=== PATIENT | female | born 1985 ===

== ENCOUNTER 2018-08-03 16:24 | Emergency (ER) | payer MEDICAID ==
[2018-08-03 16:45] VITALS: RESP 20
--- NOTE | 2018-08-03 17:05 | C.PDOC ---
History Of Present Illness 32 year old female presents to the emergency department with complaints of left lower abdominal pain, intermittent for the last 6 days. Patient describes her pain as crampy, ranging from 2/10 to 6/10 in severity, associated with diarrhea. Patient states that the pain is dull and non-radiating. Patient reports that she was seen by her Doctor today and had a positive urine test, after which she was sent to the ER for further evaluation. Patient denies fever, chills, nausea, vomiting, chest pain, shortness of breath, dysuria, vaginal spotting. Patient is with a 10 year old child. Patient states that she has not been able to get for the past 10 years despite having unprotected sex. Time Seen by Provider: 08/03/18 16:59 Chief Complaint (Nursing): Abdominal Pain History Per: Patient History/Exam Limitations: no limitations Onset/Duration Of Symptoms: Days (6) Current Symptoms Are (Timing): Still Present Pain Scale Rating Of: 2 Location Of Pain/Discomfort: LLQ Quality Of Discomfort: Dull, Cramping, "Pain" Associated Symptoms: Diarrhea. denies: Fever, Chills, Nausea, Vomiting, Back Pain, Chest Pain, Constipation, Urinary Symptoms : 2 Para: 1 Past Medical History Reviewed: Historical Data, Nursing Documentation, Vital Signs Vital Signs: Last Vital Signs Temp 98.4 F 08/03/18 16:40 Pulse 87 08/03/18 16:40 Resp 20 08/03/18 16:40 BP 145/102 H 08/03/18 16:40 Pulse Ox 99 08/03/18 16:40 Primary Care Provider: Jt Varela - Medical History PMH: No Chronic Diseases Surgical History: No Surg Hx Family History: States: No Known Family Hx - Social History Hx Tobacco Use: Yes Hx Alcohol Use: Yes Hx Substance Use: No - Immunization History Hx Tetanus Toxoid Vaccination: No Hx Influenza Vaccination: No Hx Pneumococcal Vaccination: No Review Of Systems Except As Marked, All Systems Reviewed And Found Negative. Constitutional: Negative for: Fever, Chills Cardiovascular: Negative for: Chest Pain Respiratory: Negative for: Cough, Shortness of Breath Gastrointestinal: Positive for: Abdominal Pain, Diarrhea. Negative for: Nausea, Vomiting, Constipation Genitourinary: Negative for: Dysuria Neurological: Negative for: Weakness, Numbness Physical Exam - Physical Exam Appears: Non-toxic, No Acute Distress, Other (afebrile) Skin: Normal Color, Warm, Dry Head: Atraumatic, Normacephalic Eye(s): bilateral: Normal Inspection Neck: Normal, Supple Chest: Symmetrical, No Tenderness Cardiovascular: Rhythm Regular, No Murmur Respiratory: Normal Breath Sounds, No Rales, No Rhonchi, No Wheezing Gastrointestinal/Abdominal: Soft, Tenderness (mild LLQ tenderness), No Guarding, No Rebound, Other (obese) Back: No CVA Tenderness Extremity: Normal ROM Neurological/Psych: Oriented x3, Normal Speech, Normal Cognition ED Course And Treatment - Laboratory Results Result Diagrams: 08/03/18 17:34 08/03/18 17:34 O2 Sat by Pulse Oximetry: 99 (RA) Pulse Ox Interpretation: Normal Medical Decision Making Medical Decision Making: Plan: Blood Bank Type and Screen Chemistry CBC NaCl IV Fluids Urine Culture HCG Qualitative Urine Urinalysis US Transvaginal DDx: Ectopic vs. early vs. enteritis vs. viral syndrome Disposition - Disposition Disposition Time: 19:06 Condition: STABLE Forms: [employer] [facility] (Sami) - Clinical Impression Clinical Impression: Abdominal pain, - Scribe Statement The provider has reviewed the documentation as recorded by the Scribe (Samir Medrano) Provider Attestation: All medical record entries made by the Scribe were at my direction and pers onally dictated by me. I have reviewed the chart and agree that the record accurately reflects my personal performance of the history, physical exam, medical decision making, and the department course for this patient. I have also personally directed, reviewed, and agree with the discharge instructions and disposition. Physician Patient Turnover Patient Signed Over To: Mandie Vu Handoff Comments: LLQ pain, early prergnancy, pending US and final dispo
[2018-08-03] MEDS ORDERED: Sodium Chloride 0.9% 1,000 ML IV ONE (17:14)
[2018-08-03 17:37] LABS: HCG,QUALITATIVE URINE POSITIVE (NEGATIVE); URINE BACTERIA RARE (<OCC); URINE BILIRUBIN NEGATIVE (NEGATIVE); URINE BLOOD 2+ (NEGATIVE); URINE CLARITY Clear (Clear); URINE COLOR Straw (YELLOW); URINE GLUCOSE (UA) NORMAL (Normal); URINE LEUKOCYTE ESTERASE NEG Leu/uL (Negative); URINE PROTEIN NEGATIVE (NEGATIVE); URINE UROBILINOGEN NORMAL mg/dL (0.2-1.0)
[2018-08-03 17:38] LABS: BASO % 0.5 % (0.0-2.0); EOS % 0.5 % (0.0-4.0); HEMOGLOBIN 13.9 g/dL (11.0-16.0); LYMPH # 2.1 K/uL (1.0-4.3); LYMPH % 24.3 % (20.0-40.0); MEAN CORPUSCULAR HGB CONC 35.1 g/dL (33.0-37.0); MEAN PLATELET VOLUME 9.4 fL (7.2-11.7); MONO # 0.4 K/uL (0.0-0.8); MONO % 4.9 % (0.0-10.0); NEUT % 69.8 % (50.0-75.0); NRBC % 0.1 % (0.0-2.0); RBC 4.33 Mil/uL (3.80-5.20); RED CELL DISTRIBUTION WIDTH 12.8 % (11.5-14.5); WHITE BLOOD COUNT 8.6 K/uL (4.8-10.8)
[2018-08-03 17:40] LABS: MEAN CELL VOLUME 91.2 fL (81.0-99.0)
[2018-08-03 17:57] LABS: ALB/GLOB RATIO 1.5 (1.0-2.1); ALBUMIN 4.9 g/dL (3.5-5.0); ALT/SGPT 27 U/L (9-52); AST/SGOT 29 U/L (14-36); BLOOD UREA NITROGEN 7 mg/dL (7-17); CALCIUM 9.3 mg/dl (8.6-10.4); GFR NON-AFRICAN AMERICAN > 60
[2018-08-03 20:57] VITALS: BP 125/85; PULSE 80; TEMP 98.7; O2SAT 100
--- NOTE | 2018-08-04 10:36 | US ---
Date of service: 08/03/2018 HISTORY: , LLQ pain and spotting COMPARISON: None available. TECHNIQUE: Real-time transabdominal pelvic ultrasound was performed. In addition a transvaginal pelvic ultrasound was necessary to better depict pelvic anatomy. FINDINGS: UTERUS: Measures 11.6 x 4.9 x 6.1 cm. Anteverted. ENDOMETRIUM: Measures 1.2 cm in diameter. CERVIX: No cervical abnormality identified. RIGHT OVARY: Measures 3.1 x 1.8 x 2.8 cm. Blood flow is demonstrated. Indeterminate right adnexal heterogeneous mass measures 3.4 x 2.1 x 3.6 cm with associated vascularity. LEFT OVARY: Measures 4.0 x 3.0 x 3.9 cm. Blood flow is demonstrated. FREE FLUID: Small pelvic fluid extending to the right adnexa. OTHER FINDINGS: None. IMPRESSION: No evidence of intrauterine gestational sac. If indeed the patient is based on serum beta HCG values, the sonographic findings represent either: Very early IUP; embryonic demise; ectopic gestation. Follow-up with serial quantitative serum beta HCG measurements and post OBGYN follow-up as clinically indicated, since ectopic gestation cannot be excluded based only on sonographic findings. Heterogeneous vascular region at the right adnexa of unclear etiology; ectopic must be considered in the proper clinical setting. Correlate clinically including quantitative beta HCG and [employer] TECHNICIAN consultation with short-term follow-up as indicated. Small pelvic fluid extending to the right adnexa. Preliminary impression was provided by [facility]
== END 2018-08-03 20:57 | disposition home or self-care (01) ==
LOC: C.ER 16:24
DX: O26.899 Other specified pregnancy related conditions, unspecified trimester (principal); Z3A.00 Weeks of gestation of pregnancy not specified
CPT/HCPCS: 76830; 76856; 80053; 81001; 81025; 84702; 84703; 85025; 86850; 86900; 87086; 99284; J7030

== ENCOUNTER 2018-08-05 18:05 | Emergency (ER) | payer MEDICAID ==
--- NOTE | 2018-08-05 19:22 | C.PDOC ---
History Of Present Illness 32 year old female, , presents to the ED for evaluation of abdominal pain and vaginal bleeding. Patient states his LMP 06/11, was seen in the ED 2 days ago. Patient's US at the time showed questionable ectopic and returns as instructed. Patient denies fever, chills, nausea, vomit, diarrhea, rash, dysuria, hematuria, back pain. Time Seen by Provider: 08/05/18 19:08 Chief Complaint (Nursing): Abdominal Pain History Per: Patient History/Exam Limitations: no limitations Onset/Duration Of Symptoms: Days Current Symptoms Are (Timing): Still Present Location Of Pain/Discomfort: Suprapubic Radiation Of Pain To:: None Quality Of Discomfort: "Pain" Associated Symptoms: denies: Nausea, Vomiting, Diarrhea, Urinary Symptoms Recent travel outside of the [place]: No Additional History Per: Patient Abnormal Vaginal Bleeding: Yes Last Menstral Period: 06/11/18 : 2 Para: 1 Past Medical History Reviewed: Historical Data, Nursing Documentation, Vital Signs Vital Signs: Last Vital Signs Temp 97.6 F 08/05/18 18:08 Pulse 89 08/05/18 18:08 Resp 17 08/05/18 18:08 BP 128/82 08/05/18 18:08 Pulse Ox 97 08/05/18 18:08 Primary Care Provider: Non [facility] Provider, - Medical History PMH: No Chronic Diseases Surgical History: No Surg Hx Family History: States: Unknown Family Hx - Social History Hx Tobacco Use: Yes Hx Alcohol Use: Yes Hx Substance Use: No - Immunization History Hx Tetanus Toxoid Vaccination: No Hx Influenza Vaccination: No Hx Pneumococcal Vaccination: No Review Of Systems Constitutional: Negative for: Fever, Chills Cardiovascular: Negative for: Chest Pain Respiratory: Negative for: Shortness of Breath Gastrointestinal: Positive for: Abdominal Pain. Negative for: Nausea, Vomiting Genitourinary: Positive for: Vaginal Bleeding. Negative for: Dysuria, Hematuria Musculoskeletal: Negative for: Back Pain Skin: Negative for: Rash Neurological: Negative for: Weakness, Numbness, Headache, Dizziness Physical Exam - Physical Exam Appears: Non-toxic, No Acute Distress Skin: Normal Color, Warm, Dry Head: Atraumatic, Normacephalic Eye(s): bilateral: Normal Inspection Oral Mucosa: Moist Neck: Normal ROM, Supple Chest: Symmetrical Cardiovascular: Rhythm Regular Respiratory: Normal Breath Sounds, No Rales, No Rhonchi, No Wheezing Gastrointestinal/Abdominal: Soft, Tenderness (minima suprapubic), No Guarding, No Rebound Back: No CVA Tenderness Extremity: Normal ROM, No Tenderness, No Swelling Neurological/Psych: Oriented x3, Normal Speech, Normal Cognition Gait: Steady ED Course And Treatment - Laboratory Results Result Diagrams: 08/05/18 19:53 08/05/18 19:55 O2 Sat by Pulse Oximetry: 97 (ON RA) Pulse Ox Interpretation: Normal - CT Scan/US pelvic US Other Rad Studies (CT/US): Read By Radiologist, Radiology Report Reviewed CT/US Interpretation: EXAM: US Pelvis, Complete Transvaginal and Transabdominal. COMPARISON: Comparison is made to recent prior examination dated 08/03/2018. CLINICAL HISTORY: Abd pain . Beta hCG measurement on 08/05/2018 is 99.3 units and on 08/03/2018 measured 297.6 units. TECHNIQUE: Transvaginal and transabdominal pelvic ultrasound (complete) with image documentation. FINDINGS: ENDOMETRIUM: Again, there is no identification of an IUP. Thickening of the endometrium noted measuring 1.8 cm in AP dimension. UTERUS/CERVIX: The uterus appears slightly elongated measuring 10.8 x 4.7 x 5.9 cm in longitudinal, AP and transverse dimensions respectively; but otherwise within normal limits. No uterine fibroid or other mass evident. RIGHT OVARY: Normal Doppler flow. No abnormal mass. Previously described right adnexal finding not identified on the present study. LEFT OVARY: Normal Doppler flow. No abnormal mass. FREE FLUID: Minimal free fluid seen in the posterior cul-de-sac. IMPRESSION: 1. No identification of IUP. 2. Thickened endometrium measuring 1.8 cm in AP dimension. 3. Both ovaries now appear normal in size and position. . Electronically signed on August 05, 2018 9:29:33 PM EDT by: Lm Riley M.D., M.B.A., Certified By [employer]. Fellowship Trained MRI and CT Specialist. Medical Decision Making Medical Decision Makin day ago beta 200, ?right sided hetrogenous density ?ectopic Plan: * labs * UA * pelvic US 21:37 - beta decreasing, no iup. discussed case with Dr. Kraft OB recreation professor who recommends patient to come back in 2 days for recheck betta. abd soft no ttp. suepct miscarriage vs ectopic. Disposition - Disposition Disposition: HOME/ ROUTINE Disposition Time: 21:00 Condition: STABLE Additional Instructions: return in 2 days for recheck of blood test Instructions: Miscarriage, Dealing With Miscarriage Forms: [employer] [facility] (Latvian) - Clinical Impression Clinical Impression: Vaginal bleeding - Scribe Statement The provider has reviewed the documentation as recorded by the Scribe Isidoro Coffey All medical record entries made by the Scribe were at my direction and person ally dictated by me. I have reviewed the chart and agree that the record accurately reflects my personal performance of the history, physical exam, medical decision making, and the department course for this patient. I have also personally directed, reviewed, and agree with the discharge instructions and disposition.
[2018-08-05 20:01] LABS: BASO % 0.4 % (0.0-2.0); EOS # 0.1 K/uL (0.0-0.7); EOS % 1.3 % (0.0-4.0); HEMOGLOBIN 12.8 g/dL (11.0-16.0); LYMPH # 2.1 K/uL (1.0-4.3); LYMPH % 29.2 % (20.0-40.0); MEAN CELL VOLUME 92.9 fL (81.0-99.0); MEAN CORPUSCULAR HEMOGLOBIN 31.6 pg (27.0-31.0); MEAN PLATELET VOLUME 9.3 fL (7.2-11.7); MONO # 0.5 K/uL (0.0-0.8); MONO % 6.9 % (0.0-10.0); NEUT # 4.6 K/uL (1.8-7.0); NEUT % 62.2 % (50.0-75.0); RBC 4.04 Mil/uL (3.80-5.20); WHITE BLOOD COUNT 7.3 K/uL (4.8-10.8)
[2018-08-05 20:09] LABS: ALB/GLOB RATIO 1.3 (1.0-2.1); ALT/SGPT 35 U/L (9-52); AST/SGOT 24 U/L (14-36); BLOOD UREA NITROGEN 9 mg/dL (7-17); GFR NON-AFRICAN AMERICAN > 60
[2018-08-05 20:09] LABS: INR 0.9; PARTIAL THROMBOPLASTIN TIME 32.1 SECONDS (21-34); PROTHROMBIN TIME 10.3 SECONDS (9.7-12.2)
[2018-08-05 21:29] LABS: HCG,QUALITATIVE URINE POSITIVE (NEGATIVE)
[2018-08-05 21:33] LABS: SQUAMOUS EPITHIAL 2 /hpf (0-5); URINE BACTERIA MANY (<OCC); URINE BILIRUBIN NEGATIVE (NEGATIVE); URINE BLOOD 2+ (NEGATIVE); URINE CLARITY Hazy (Clear); URINE COLOR Red (YELLOW); URINE GLUCOSE (UA) NORMAL (Normal); URINE LEUKOCYTE ESTERASE NEG Leu/uL (Negative); URINE PROTEIN NEGATIVE (NEGATIVE); URINE UROBILINOGEN NORMAL mg/dL (0.2-1.0)
[2018-08-05 21:51] VITALS: BP 132/86; PULSE 82; RESP 18; TEMP 98.3
[2018-08-06 00:06] VITALS: O2SAT 97
--- NOTE | 2018-08-06 14:35 | US ---
Date of service: 08/05/2018 HISTORY: abd pain preg. LMP 06/11/2018. Decreasing beta HCG level. COMPARISON: Pelvic ultrasound 08/03/2018 TECHNIQUE: Grayscale and color Doppler sonographic images were obtained of the pelvis utilizing transabdominal and transvaginal approach. FINDINGS: UTERUS: Anteverted and normal in sizemeasuring 10.8 x 4.7 x 5.9 cm. ENDOMETRIUM: Endometrial stripe measures 1.8 cm, thickened and is heterogeneous in appearance. CERVIX: No definite cervical abnormality identified. RIGHT OVARY: Measures 3.4 x 1.5 x 2.7 cm. There are 2 small calcifications within the right ovary measuring up to 0.3 cm. Normal flow. LEFT OVARY: Measures 3 x 2.4 x 2.4 cm. Sonographically unremarkable Normal flow. FREE FLUID: Small amount of pelvic free fluid noted, likely physiologic OTHER FINDINGS: None. IMPRESSION: Heterogeneous, thickened endometrium. No intrauterine gestational sac identified. Findings may be due to too early to detect or missed . Ectopic cannot be excluded in the setting of a positive test and no intrauterine gestational sac. Recommend followup with serial beta HCG levels and pelvic ultrasound. Preliminary impression was provided by the [facility] service. Findings are concordant.
== END 2018-08-05 21:51 | disposition home or self-care (01) ==
LOC: C.ER 18:05
DX: O46.90 Antepartum hemorrhage, unspecified, unspecified trimester (principal); Z3A.00 Weeks of gestation of pregnancy not specified